=== PATIENT | female | born 1980 | race Hispanic/Latino ===

== ENCOUNTER 2018-02-04 05:54 | Emergency (ER) | payer OTHER ==
[2018-02-04 06:01] VITALS: O2SAT 96
[2018-02-04 06:40] LABS: HCG,QUALITATIVE URINE NEGATIVE (NEGATIVE)
[2018-02-04 06:44] LABS: SQUAMOUS EPITHIAL 5 /hpf (0-5); URINE BACTERIA OCC (<OCC); URINE BILIRUBIN NEGATIVE (NEGATIVE); URINE BLOOD NEGATIVE (NEGATIVE); URINE CLARITY Hazy (Clear); URINE COLOR Straw (YELLOW); URINE GLUCOSE (UA) NORMAL (Normal); URINE LEUKOCYTE ESTERASE 2+ Leu/uL (Negative); URINE PROTEIN NEGATIVE (NEGATIVE); URINE UROBILINOGEN NORMAL mg/dL (0.2-1.0)
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
[2018-02-04 09:43] VITALS: BP 116/80; PULSE 81; RESP 16; TEMP 98.5
== END 2018-02-04 09:43 | disposition home or self-care (01) ==
LOC: C.ER 05:54
DX: T76.21XA Adult sexual abuse, suspected, initial encounter (principal)